=== PATIENT | female | born 1990 | race Two or more races ===

== ENCOUNTER 2016-11-20 17:08 | Emergency (ER) | payer SELFPAY ==
[~2016-11-20] VITALS: Ht 162.6 cm; Wt 72.6 kg
[2016-11-20 17:30] VITALS: BP 114/72
[2016-11-20] MEDS ORDERED: Ketorolac 30mg Inj IM ONE (17:45)
[2016-11-20] MEDS ORDERED: DiphenhydrAMINE 50mg/ml Inj IM ONE (17:45)
[2016-11-20] MEDS ORDERED: Metoclopramide 10mg/2ml Inj IM ONE (17:45)
[2016-11-20] MEDS ORDERED: IBUPROFEN600 MG ORAL (19:22)
[2016-11-20 19:35] VITALS: BP 95/59
--- NOTE | 2016-11-21 12:19 | Emergency Room Report ---
History of Present Illness General Chief Complaint: Headache Source: Patient Present Illness HPI The patient is a 25-year-old female presenting with a right-sided headache for the past one month. Patient states headache is on and off with no known provoking or relieving factors. It is described as a 10 out of 10 sharp, pulsing sensation and does not radiate. Pain worse with bright lights. She has not tried any medications. She denies other symptoms such as nausea, vomiting, fever, chills, dizziness, blurred vision, neck pain or stiffness Allergies: Uncoded Allergies: POLEN (Allergy, Mild, 11/20/16) DUST (Allergy, Unknown, 11/20/16) Patient History Past Medical History: see triage record Pertinent Family History: none Last Menstrual Period: 11/12/16 Now: No : 3 Para: 1 Reviewed Nursing Documentation: PMH: Agreed, PSxH: Agreed Nursing Documentation-PMH Past Medical History: No Stated History Review of Systems All Other Systems: negative except mentioned in HPI Physical Exam Vital Signs Date Time Temp Pulse Resp B/P Pulse Ox O2 Delivery O2 Flow Rate FiO2 11/20/16 17:10 97.0 96 18 114/72 99 Room Air Sp02 EP Interpretation: reviewed, normal General Appearance: no apparent distress, alert, GCS 15, non-toxic Head: normocephalic, atraumatic Eyes: bilateral eye PERRL, bilateral eye normal inspection ENT: hearing grossly normal, normal pharynx, no angioedema, normal voice Neck: full range of motion, supple/symm/no masses Respiratory: chest non-tender, lungs clear, normal breath sounds, speaking full sentences Cardiovascular #1: regular rate, rhythm, no edema Musculoskeletal: back normal, gait/station normal, normal range of motion, non- tender Neurologic: alert, oriented x3, responsive, motor strength/tone normal, sensory intact, speech normal Psychiatric: judgement/insight normal, memory normal, mood/affect normal, no suicidal/homicidal ideation Skin: normal color, no rash, warm/dry, well hydrated Lymphatic: no adenopathy Medical Decision Making PA Attestation Dr. Sousa is my supervising physician. Patient management was discussed with my supervising physician Diagnostic Impression: Primary Impression: Migraine Qualified Codes: G43.909 - Migraine, unspecified, not intractable, without status migrainosus ER Course The patient is a 25-year-old female presenting with a right-sided headache Differential diagnoses include but not limited to Migraine, tension headache, cluster ARRIETA, anxiety, , meningitis PE: PE: No apparent distress. A&Ox4 PERRL. EOMI. Head NC/AT Normal mentation. RRR. No MRG Lungs CTA bilat Urine preg: neg Pt is given toradol, benadryl, and reglan and is feeling better. She will be PR'ed home with prescription for motrin. ER precautions given Laboratory Tests Test 11/20/16 17:53 Urine HCG, Qualitative Negative Lab Results Impression Preg: neg Last Vital Signs Date Time Temp Pulse Resp B/P Pulse Ox O2 Delivery O2 Flow Rate FiO2 11/20/16 19:35 98.2 80 18 95/59 99 Room Air Status: improved Disposition: HOME, SELF-CARE Condition: Improved Scripts Ibuprofen* (MOTRIN*) 600 Mg Tablet 600 MG ORAL Q8H Y for For Pain, #30 TAB 0 Refills Prov: RADHA GERARDO 11/20/16 Patient Instructions: Migraine Headache Additional Instructions: I discussed my findings with the patient. All questions and concerns have been answered. Treatment and medication compliance have been addressed. I advised the patient that they need to follow up with PMD in 3-5 days. Return to ED if symptoms worsen, new symptoms arise, or if needed for any reason. Patient verbalized understanding of discharge instructions. RADHA GERARDO November 21, 2016 12:19
== END 2016-11-20 19:35 | disposition home or self-care (01) ==
LOC: EDBD 17:08 → EMR 19:14
DX: G43.909 Migraine, unspecified, not intractable, without status migrainosus (principal)
CPT/HCPCS: 81025; 96372; 99283; J1200; J1885; J2765